=== PATIENT | male | born 1935 | race Caucasian/White ===

== ENCOUNTER 2016-09-15 22:32 | Inpatient (IN) | payer MEDICARE, BC ==
[~2016-09-15 22:32] MED LIST: ACTOS45 MG; AMITRIPTYLINE H25 M1 PO; AMITRIPTYLINE100 MG; AMLODIPINE BESYL5 MG PO; ASPIR-TRIN325 M2 PO; ASPIRIN325 MG; BENAZEPRIL HCL20 M2 PO; CADUET 5 MG/201 TAB; CATAPRES0.2 MG; CENTRUM SILVER1 EAC3 PO; CENTRUM SILVER1 TA; CLONIDINE HCL0.2 M1 PO; CLOPIDOGREL75 M1 PO; COREG6.25 M1 PO; COREG6.25 MG; ELAVIL75 MG; FISH OIL 1,0001 CAP; FISH OIL 1,2001 EAC4 PO; FUROSEMIDE20 MG; FUROSEMIDE40 M2 PO; FUROSEMIDE40 MG; GLUCOPHAGE500 M3 PO; GLUCOVANCE 5/501 TAB; ISOSORBIDE DINI30 M1 PO; LANTUS100 U/ML; LANTUS100 UNITS/ SC; LASIX40 M1 PO; LIPITOR40 MG; NEURONTIN300 M1 PO; NEURONTIN300 MG; NEURONTIN600 MG; PLAVIX75 MG; ZETIA10 MG; ZOCOR80 MG
[2016-09-15] MEDS ORDERED: LIPITOR80 M1 PO (23:01)
[2016-09-15] MEDS ORDERED: LEVEMIR100 UNITS/ SC ×2 (23:03→23:04)
[2016-09-15] MEDS ORDERED: HUMALOG MI100 UNITS1 (23:06)
[2016-09-15 23:48] LABS: BASO % 0.2 % (0-2); EOS % 1.5 % (0-7); EOSINOPHIL ABSOLUTE COUNT 0.2 tho/cmm (0.0-0.7); HGB-HEMOGLOBIN 11.2 gm/dl (13.5-17.0); IMMATURE GRANULOCYTES ABSOLUTE 0.01 tho/cmm (0-0.03); IMMATURE GRANULOCYTES PERCENT 0.1 % (0-0.3); LYMPH % 12.6 % (20-45); LYMPH ABSOLUTE COUNT 1.3 tho/cmm (0.8-4.5); MCH (MEAN CORPUSCULAR HGB) 28.5 pg (28.0-32.0); MCHC MEAN CORPUSCULAR HGB CONC 33.9 % (32.0-36.0); MEAN PLATELET VOLUME 9.6 cmc (9.4-12.4); MONO % 6.9 % (0-12); MONOCYTE ABSOLUTE COUNT 0.7 tho/cmm (0.0-1.2); NEUTROPHIL ABSOLUTE COUNT 8.3 tho/cmm (1.6-8.0); NEUTROPHIL-AUTOMATED 8.3 tho/cmm (1.6-8.0); NEUTROPHILS % 78.7 % (40-80); PLATELET COUNT 167 tho/cmm (150-450); RED BLOOD COUNT 3.93 mil/cmm (4.40-5.70); RED CELL DISTRIBUTION WIDTH 13.5 % (12.4-16.4); WHITE BLOOD COUNT 10.6 tho/cmm (4.0-10.0)
[2016-09-15 23:53] LABS: PROTHROMBIN TIME 11.6 SECONDS (9.0-13.6)
[2016-09-16 00:07] LABS: ALB/GLOB RATIO 0.9 (0.8-2.0); ALKALINE PHOSPHATASE 60 U/L (33-138); ALT/SGPT 22 U/L (12-78); ANION GAP 13 mmol/L (0-20); AST/SGOT 15 U/L (10-40); BILIRUBIN,TOTAL 0.5 mg/dl (0.0-1.5); BLOOD UREA NITROGEN 33 mg/dl (6-24); CALCIUM 8.3 mg/dl (8.5-10.5); CARBON DIOXIDE-VENOUS 29 mmol/L (22-32); CHLORIDE 103 mmol/l (96-110); CREATININE 1.26 mg/dl (0.60-1.30); GLUCOSE 275 mg/dL (70-110); POTASSIUM 5.7 mmol/L (3.7-5.1); SODIUM 139 mmol/L (135-145); eGFR VALUE FOR BLACK 62 mL/Min
[2016-09-16 03:21] LABS: MCV (MEAN CELL VOLUME) 84.1 fl (82.0-96.0); RED CELL DISTRIBUTION WIDTH 13.5 % (12.4-16.4)
[2016-09-16 03:22] LABS: HCT-HEMATOCRIT 23.3 % (36.0-53.5); HGB-HEMOGLOBIN 7.8 gm/dl (13.5-17.0)
[2016-09-16 03:38] LABS: C-REACTIVE PROTEIN <0.3 mg/dl (0-0.9); MAGNESIUM 1.6 mg/dl (1.8-2.6); PHOSPHOROUS 1.8 mg/dl (2.5-4.9)
[2016-09-16 03:43] LABS: ESR-ERYTHROCYTE SED RATE 11 mm/hr (0-20)
[2016-09-16 04:16] LABS: PROCALCITONIN <0.05 ng/ml (0.05-0.09)
[2016-09-16 06:44] LABS: ANION GAP 14 mmol/L (0-20); BLOOD UREA NITROGEN 38 mg/dl (6-24); CARBON DIOXIDE-VENOUS 24 mmol/L (22-32); CHLORIDE 107 mmol/l (96-110); CREATININE 1.24 mg/dl (0.60-1.30); GLUCOSE 306 mg/dL (70-110); POTASSIUM 5.6 mmol/L (3.7-5.1); SODIUM 139 mmol/L (135-145); eGFR VALUE FOR BLACK 63 mL/Min
[2016-09-16 06:50] LABS: BASO % 0.3 % (0-2); EOS % 0.2 % (0-7); HGB-HEMOGLOBIN 7.2 gm/dl (13.5-17.0); IMMATURE GRANULOCYTES ABSOLUTE 0.03 tho/cmm (0-0.03); IMMATURE GRANULOCYTES PERCENT 0.3 % (0-0.3); LYMPH ABSOLUTE COUNT 1.3 tho/cmm (0.8-4.5); MCH (MEAN CORPUSCULAR HGB) 28.6 pg (28.0-32.0); MCV (MEAN CELL VOLUME) 83.3 fl (82.0-96.0); MEAN PLATELET VOLUME 9.4 cmc (9.4-12.4); MONO % 4.8 % (0-12); MONOCYTE ABSOLUTE COUNT 0.5 tho/cmm (0.0-1.2); NEUTROPHIL ABSOLUTE COUNT 8.7 tho/cmm (1.6-8.0); NEUTROPHIL-AUTOMATED 8.7 tho/cmm (1.6-8.0); NEUTROPHILS % 82.4 % (40-80); PLATELET COUNT 160 tho/cmm (150-450); RED BLOOD COUNT 2.52 mil/cmm (4.40-5.70); RED CELL DISTRIBUTION WIDTH 13.7 % (12.4-16.4); WHITE BLOOD COUNT 10.5 tho/cmm (4.0-10.0)
[2016-09-16 07:05] LABS: MCHC MEAN CORPUSCULAR HGB CONC 34.3 % (32.0-36.0)
[2016-09-16 17:17] LABS: URINE BILIRUBIN NEGATIVE (NEG); URINE BLOOD NEGATIVE (NEG); URINE COLOR YELLOW; URINE GLUCOSE (UA) LARGE (NEG); URINE KETONE SMALL (NEG); URINE LEUKOCYTE ESTERASE NEGATIVE (NEG); URINE NITRITE NEGATIVE (NEG); URINE PH 6.5 (5.0-8.0); URINE PROTEIN NEGATIVE (NEG); URINE SPECIFIC GRAVITY 1.005 (1.003-1.030)
[2016-09-16 17:18] LABS: URINE APPEARANCE CLEAR
[2016-09-17 05:26] LABS: BASO % 0.1 % (0-2); EOS % 0.5 % (0-7); HGB-HEMOGLOBIN 7.4 gm/dl (13.5-17.0); IMMATURE GRANULOCYTES ABSOLUTE 0.02 tho/cmm (0-0.03); IMMATURE GRANULOCYTES PERCENT 0.3 % (0-0.3); LYMPH % 15.4 % (20-45); LYMPH ABSOLUTE COUNT 1.2 tho/cmm (0.8-4.5); MCH (MEAN CORPUSCULAR HGB) 28.5 pg (28.0-32.0); MCV (MEAN CELL VOLUME) 83.8 fl (82.0-96.0); MEAN PLATELET VOLUME 9.4 cmc (9.4-12.4); MONOCYTE ABSOLUTE COUNT 0.6 tho/cmm (0.0-1.2); NEUTROPHIL ABSOLUTE COUNT 5.8 tho/cmm (1.6-8.0); NEUTROPHIL-AUTOMATED 5.8 tho/cmm (1.6-8.0); NEUTROPHILS % 75.7 % (40-80); RED CELL DISTRIBUTION WIDTH 15.2 % (12.4-16.4); WHITE BLOOD COUNT 7.6 tho/cmm (4.0-10.0)
[2016-09-17 05:36] LABS: ANION GAP 11 mmol/L (0-20); BLOOD UREA NITROGEN 26 mg/dl (6-24); CALCIUM 6.9 mg/dl (8.5-10.5); CARBON DIOXIDE-VENOUS 26 mmol/L (22-32); CHLORIDE 111 mmol/l (96-110); CREATININE 0.98 mg/dl (0.60-1.30); GLUCOSE 239 mg/dL (70-110); SODIUM 144 mmol/L (135-145); eGFR VALUE FOR BLACK 83 mL/Min
[2016-09-17 05:51] LABS: HCT-HEMATOCRIT 21.8 % (36.0-53.5); MCHC MEAN CORPUSCULAR HGB CONC 33.9 % (32.0-36.0)
[2016-09-17 05:52] LABS: PLATELET COUNT 74 tho/cmm (150-450)
[2016-09-17 06:09] LABS: POTASSIUM 3.5 mmol/L (3.7-5.1)
[2016-09-17 21:18] LABS: HGB-HEMOGLOBIN 8.5 gm/dl (13.5-17.0)
[2016-09-18 05:57] LABS: ANION GAP 11 mmol/L (0-20); BLOOD UREA NITROGEN 14 mg/dl (6-24); CARBON DIOXIDE-VENOUS 25 mmol/L (22-32); CHLORIDE 116 mmol/l (96-110); CREATININE 0.86 mg/dl (0.60-1.30); GLUCOSE 262 mg/dL (70-110); POTASSIUM 3.8 mmol/L (3.7-5.1); SODIUM 148 mmol/L (135-145); eGFR VALUE FOR BLACK >90 mL/Min
[2016-09-18 06:14] LABS: CALCIUM 6.4 mg/dl (8.5-10.5)
[2016-09-18 09:11] LABS: BASO % 0.2 % (0-2); EOS % 1.1 % (0-7); EOSINOPHIL ABSOLUTE COUNT 0.1 tho/cmm (0.0-0.7); HGB-HEMOGLOBIN 6.6 gm/dl (13.5-17.0); IMMATURE GRANULOCYTES ABSOLUTE 0.06 tho/cmm (0-0.03); IMMATURE GRANULOCYTES PERCENT 0.5 % (0-0.3); LYMPH % 8.9 % (20-45); MCH (MEAN CORPUSCULAR HGB) 28.8 pg (28.0-32.0); MCV (MEAN CELL VOLUME) 85.2 fl (82.0-96.0); MEAN PLATELET VOLUME 9.6 cmc (9.4-12.4); MONO % 7.5 % (0-12); MONOCYTE ABSOLUTE COUNT 0.8 tho/cmm (0.0-1.2); NEUTROPHIL ABSOLUTE COUNT 9.1 tho/cmm (1.6-8.0); NEUTROPHIL-AUTOMATED 9.1 tho/cmm (1.6-8.0); NEUTROPHILS % 81.8 % (40-80); PLATELET COUNT 83 tho/cmm (150-450); RED BLOOD COUNT 2.29 mil/cmm (4.40-5.70); RED CELL DISTRIBUTION WIDTH 15.3 % (12.4-16.4); WHITE BLOOD COUNT 11.2 tho/cmm (4.0-10.0)
[2016-09-18 09:18] LABS: HCT-HEMATOCRIT 19.5 % (36.0-53.5); MCHC MEAN CORPUSCULAR HGB CONC 33.8 % (32.0-36.0)
[2016-09-19 03:45] LABS: BASO % 0.2 % (0-2); EOS % 2.7 % (0-7); EOSINOPHIL ABSOLUTE COUNT 0.2 tho/cmm (0.0-0.7); HGB-HEMOGLOBIN 6.1 gm/dl (13.5-17.0); IMMATURE GRANULOCYTES ABSOLUTE 0.05 tho/cmm (0-0.03); IMMATURE GRANULOCYTES PERCENT 0.8 % (0-0.3); LYMPH % 19.7 % (20-45); LYMPH ABSOLUTE COUNT 1.3 tho/cmm (0.8-4.5); MCH (MEAN CORPUSCULAR HGB) 28.4 pg (28.0-32.0); MCV (MEAN CELL VOLUME) 84.7 fl (82.0-96.0); MEAN PLATELET VOLUME 9.8 cmc (9.4-12.4); MONO % 11.6 % (0-12); MONOCYTE ABSOLUTE COUNT 0.8 tho/cmm (0.0-1.2); NEUTROPHIL ABSOLUTE COUNT 4.3 tho/cmm (1.6-8.0); NEUTROPHIL-AUTOMATED 4.3 tho/cmm (1.6-8.0); PLATELET COUNT 85 tho/cmm (150-450); RED BLOOD COUNT 2.15 mil/cmm (4.40-5.70); WHITE BLOOD COUNT 6.7 tho/cmm (4.0-10.0)
[2016-09-19 03:51] LABS: ALB/GLOB RATIO 0.9 (0.8-2.0); ALBUMIN 1.8 g/dl (3.5-5.0); ALKALINE PHOSPHATASE 38 U/L (33-138); ALT/SGPT 20 U/L (12-78); ANION GAP 9 mmol/L (0-20); AST/SGOT 18 U/L (10-40); BILIRUBIN,TOTAL 0.4 mg/dl (0.0-1.5); BLOOD UREA NITROGEN 11 mg/dl (6-24); CARBON DIOXIDE-VENOUS 26 mmol/L (22-32); CHLORIDE 116 mmol/l (96-110); CREATININE 0.79 mg/dl (0.60-1.30); GLUCOSE 186 mg/dL (70-110); POTASSIUM 3.3 mmol/L (3.7-5.1); SODIUM 148 mmol/L (135-145); eGFR VALUE FOR BLACK >90 mL/Min
[2016-09-19 04:02] LABS: CALCIUM 6.5 mg/dl (8.5-10.5)
[2016-09-19 04:09] LABS: HCT-HEMATOCRIT 18.2 % (36.0-53.5); MCHC MEAN CORPUSCULAR HGB CONC 33.5 % (32.0-36.0)
[2016-09-19 14:45] LABS: HGB-HEMOGLOBIN 8.2 gm/dl (13.5-17.0)
[2016-09-20 05:38] LABS: BASO % 0.4 % (0-2); EOS % 3.7 % (0-7); EOSINOPHIL ABSOLUTE COUNT 0.3 tho/cmm (0.0-0.7); HGB-HEMOGLOBIN 7.9 gm/dl (13.5-17.0); IMMATURE GRANULOCYTES ABSOLUTE 0.04 tho/cmm (0-0.03); IMMATURE GRANULOCYTES PERCENT 0.5 % (0-0.3); LYMPH % 13.2 % (20-45); MCH (MEAN CORPUSCULAR HGB) 28.5 pg (28.0-32.0); MCHC MEAN CORPUSCULAR HGB CONC 33.8 % (32.0-36.0); MCV (MEAN CELL VOLUME) 84.5 fl (82.0-96.0); MONO % 11.4 % (0-12); MONOCYTE ABSOLUTE COUNT 0.8 tho/cmm (0.0-1.2); NEUTROPHIL ABSOLUTE COUNT 5.2 tho/cmm (1.6-8.0); NEUTROPHIL-AUTOMATED 5.2 tho/cmm (1.6-8.0); NEUTROPHILS % 70.8 % (40-80); PLATELET COUNT 101 tho/cmm (150-450); RED BLOOD COUNT 2.77 mil/cmm (4.40-5.70); RED CELL DISTRIBUTION WIDTH 15.9 % (12.4-16.4); WHITE BLOOD COUNT 7.4 tho/cmm (4.0-10.0)
[2016-09-20 05:40] LABS: HCT-HEMATOCRIT 23.4 % (36.0-53.5)
[2016-09-20 05:47] LABS: ANION GAP 9 mmol/L (0-20); BLOOD UREA NITROGEN 7 mg/dl (6-24); CARBON DIOXIDE-VENOUS 27 mmol/L (22-32); CHLORIDE 110 mmol/l (96-110); CREATININE 0.69 mg/dl (0.60-1.30); GLUCOSE 145 mg/dL (70-110); SODIUM 143 mmol/L (135-145); eGFR VALUE FOR BLACK >90 mL/Min
--- NOTE | 2016-09-20 20:58 | NUR ---
VN/LEADER ROUNDING NOTE-PATIENT SITTING UP IN CHAIR COMFORTABLY WITH THE BEDSIDE NURSE GIVING HM MEDICATIONS. HE STATES HIS PAIN IS CONTROLLED. WE DID DISCUSS HIS BUTTOCKS BEING SORE AND THEY PUT SOME CREAM ON IT. I EDUCATED HIM ON REPOSITIONING HE IS SITTING IN THE CHAIR AND WHEN LAYING IN THE BED. I ALSO SUGGESTED TO K[facility] TO MAYBE PUT A SACRAL MEPILEX ON HIM IF NEEDED. PATIENT HAD NO OTHER QUESTIONS OR CONCERNS AT THIS TIME. HE UNDERSTANDS THE EGD HE WILL GET IN THE MORNING. CHART REVIEWED.
--- NOTE | 2016-09-21 08:01 | NUR ---
OFF UNIT FOR EGD
--- NOTE | 2016-09-21 10:15 | NUR ---
DOWN FOR NUC MED BLEED STUDY (GI)
[2016-09-22 05:14] LABS: BASO % 0.1 % (0-2); EOS % 4.4 % (0-7); EOSINOPHIL ABSOLUTE COUNT 0.3 tho/cmm (0.0-0.7); HCT-HEMATOCRIT 27.6 % (36.0-53.5); HGB-HEMOGLOBIN 9.3 gm/dl (13.5-17.0); IMMATURE GRANULOCYTES ABSOLUTE 0.04 tho/cmm (0-0.03); IMMATURE GRANULOCYTES PERCENT 0.6 % (0-0.3); LYMPH % 10.1 % (20-45); LYMPH ABSOLUTE COUNT 0.7 tho/cmm (0.8-4.5); MCH (MEAN CORPUSCULAR HGB) 28.9 pg (28.0-32.0); MCHC MEAN CORPUSCULAR HGB CONC 33.7 % (32.0-36.0); MCV (MEAN CELL VOLUME) 85.7 fl (82.0-96.0); MEAN PLATELET VOLUME 9.7 cmc (9.4-12.4); MONOCYTE ABSOLUTE COUNT 0.7 tho/cmm (0.0-1.2); NEUTROPHIL ABSOLUTE COUNT 5.4 tho/cmm (1.6-8.0); NEUTROPHIL-AUTOMATED 5.4 tho/cmm (1.6-8.0); NEUTROPHILS % 74.8 % (40-80); PLATELET COUNT 97 tho/cmm (150-450); RED BLOOD COUNT 3.22 mil/cmm (4.40-5.70); RED CELL DISTRIBUTION WIDTH 15.5 % (12.4-16.4); WHITE BLOOD COUNT 7.2 tho/cmm (4.0-10.0)
[2016-09-22 05:31] LABS: ANION GAP 10 mmol/L (0-20); BLOOD UREA NITROGEN 5 mg/dl (6-24); CALCIUM 7.3 mg/dl (8.5-10.5); CARBON DIOXIDE-VENOUS 28 mmol/L (22-32); CHLORIDE 111 mmol/l (96-110); CREATININE 0.72 mg/dl (0.60-1.30); GLUCOSE 164 mg/dL (70-110); POTASSIUM 3.3 mmol/L (3.7-5.1); SODIUM 146 mmol/L (135-145); eGFR VALUE FOR BLACK >90 mL/Min
--- NOTE | 2016-09-22 18:53 | NUR ---
VIRTUAL CARE NOTE: ASSESSMENT DEFERRED. PT. SLEEPING.
--- NOTE | 2016-09-22 20:30 | NUR ---
VIRUTAL CARE NOTE: PT. IN THE CHAIR, STATES IS NOT HAVING ANY PAIN, IS SLIGHTLY MANZANITA. PT. MADE AWARE THAT A DR. SPECIALIZED IN BLOOD DISORDERS WHAT GOING TO SEE HIM IN THE AM TO FIND OUT REASONING FOR RESCENT BLOOD CLOT. PT. EXPLAINED ONE DAUGHTER HE KNOWS ESE HAD FACTOR 5 LEDIAN AND THAT HE ONCE HAD A BLOOD CLOT IN HIS LEFT SHOULDER IN THE PAST A SIZE OF A SOFT BALL. ALSO REVIEWED THE ORDER OF DR. JOHNSON OF BEING NPO AFTER MIDNIGHT. THIS NURSE WASN'T ABLE TO GIVE EXPLANATION BEHIND NPO STATUS BECAUSE THERE WAS NO NOTES WRITTEN, BUT PT. WAS TOLD SOMETIMES DR'S WILL DO THIS IF THEY WANT TO PREPARE FOR SOME POSSIBLE TESTS DEPENDING ON HIS LAB. DENIES FURTHER NEEDS AT THIS TIME. INSTRUCTED TO CALL FOR HELP PRIOR TO GETTING UP TO PREVENT FALLS, STATES VERBAL UNDERSTANDING OF ALL INFORMATION GIVEN.
[2016-09-23 04:53] LABS: BASO % 0.4 % (0-2); EOS % 3.9 % (0-7); EOSINOPHIL ABSOLUTE COUNT 0.3 tho/cmm (0.0-0.7); HCT-HEMATOCRIT 28.4 % (36.0-53.5); HGB-HEMOGLOBIN 9.6 gm/dl (13.5-17.0); IMMATURE GRANULOCYTES ABSOLUTE 0.02 tho/cmm (0-0.03); IMMATURE GRANULOCYTES PERCENT 0.2 % (0-0.3); LYMPH % 12.7 % (20-45); MCH (MEAN CORPUSCULAR HGB) 28.7 pg (28.0-32.0); MCHC MEAN CORPUSCULAR HGB CONC 33.8 % (32.0-36.0); MCV (MEAN CELL VOLUME) 84.8 fl (82.0-96.0); MEAN PLATELET VOLUME 9.4 cmc (9.4-12.4); MONO % 7.9 % (0-12); MONOCYTE ABSOLUTE COUNT 0.6 tho/cmm (0.0-1.2); NEUTROPHILS % 74.9 % (40-80); PLATELET COUNT 113 tho/cmm (150-450); RED BLOOD COUNT 3.35 mil/cmm (4.40-5.70); RED CELL DISTRIBUTION WIDTH 15.1 % (12.4-16.4)
[2016-09-24 05:17] LABS: BASO % 0.5 % (0-2); EOS % 4.2 % (0-7); EOSINOPHIL ABSOLUTE COUNT 0.3 tho/cmm (0.0-0.7); HCT-HEMATOCRIT 29.6 % (36.0-53.5); HGB-HEMOGLOBIN 9.9 gm/dl (13.5-17.0); IMMATURE GRANULOCYTES ABSOLUTE 0.08 tho/cmm (0-0.03); LYMPH % 13.9 % (20-45); LYMPH ABSOLUTE COUNT 1.1 tho/cmm (0.8-4.5); MCH (MEAN CORPUSCULAR HGB) 28.2 pg (28.0-32.0); MCHC MEAN CORPUSCULAR HGB CONC 33.4 % (32.0-36.0); MCV (MEAN CELL VOLUME) 84.3 fl (82.0-96.0); MEAN PLATELET VOLUME 9.2 cmc (9.4-12.4); MONO % 14.9 % (0-12); MONOCYTE ABSOLUTE COUNT 1.2 tho/cmm (0.0-1.2); NEUTROPHIL ABSOLUTE COUNT 5.3 tho/cmm (1.6-8.0); NEUTROPHIL-AUTOMATED 5.3 tho/cmm (1.6-8.0); NEUTROPHILS % 65.5 % (40-80); PLATELET COUNT 106 tho/cmm (150-450); RED BLOOD COUNT 3.51 mil/cmm (4.40-5.70); RED CELL DISTRIBUTION WIDTH 14.8 % (12.4-16.4)
[2016-09-24] MEDS ORDERED: LOVENOX60 MG/0.1 SC (10:53)
[2016-09-24] MEDS ORDERED: PROTONIX40 M2 PO (10:57)
[2016-09-24] MEDS ORDERED: LOTRIMIN AF12 GM TP (10:59)
[2016-09-25 04:35] LABS: BASO % 0.5 % (0-2); EOS % 4.6 % (0-7); EOSINOPHIL ABSOLUTE COUNT 0.3 tho/cmm (0.0-0.7); HCT-HEMATOCRIT 29.7 % (36.0-53.5); HGB-HEMOGLOBIN 9.8 gm/dl (13.5-17.0); IMMATURE GRANULOCYTES ABSOLUTE 0.02 tho/cmm (0-0.03); IMMATURE GRANULOCYTES PERCENT 0.4 % (0-0.3); LYMPH % 15.8 % (20-45); LYMPH ABSOLUTE COUNT 0.9 tho/cmm (0.8-4.5); MCH (MEAN CORPUSCULAR HGB) 28.3 pg (28.0-32.0); MCV (MEAN CELL VOLUME) 85.8 fl (82.0-96.0); MEAN PLATELET VOLUME 9.4 cmc (9.4-12.4); MONO % 10.7 % (0-12); MONOCYTE ABSOLUTE COUNT 0.6 tho/cmm (0.0-1.2); NEUTROPHIL ABSOLUTE COUNT 3.9 tho/cmm (1.6-8.0); NEUTROPHIL-AUTOMATED 3.9 tho/cmm (1.6-8.0); PLATELET COUNT 128 tho/cmm (150-450); RED BLOOD COUNT 3.46 mil/cmm (4.40-5.70); RED CELL DISTRIBUTION WIDTH 14.7 % (12.4-16.4); WHITE BLOOD COUNT 5.7 tho/cmm (4.0-10.0)
[2016-09-25] MEDS ORDERED: STOP HOME MEDICATION (16:29)
[2016-09-25] MEDS ORDERED: LOVENOX40 MG/0.1 PO (16:53)
--- NOTE | 2016-09-25 17:30 | NUR ---
VIRTUAL CARE NOTE: PT SITTING ON CHAIR, DAUGHTER AT BEDSIDE READY FOR DISCHARGE INSTRUCTIONS. INFORMATION GIVEN AT BEDSIDE, ALL QUESTIONS ANSWERED, PT DENIES FURTHER QUESTIONS. INFORMED FLOOR NURSE DISCHARGE TEACHING DONE.
== END 2016-09-25 18:00 | DRG 871 ==
LOC: EDMED 22:32 → EMR2 09-16 02:57 → PCUB 09-16 04:20 → CCU 09-18 11:42 → PCUA 09-18 19:20 → 5WD 09-20 10:00
PROVIDERS: Emergency Medicine; Hospitalist; Internal Medicine Gastroenterology; Nurse Practitioner Adult Health; ADMIT Family Medicine
PROC: 0DJ08ZZ Inspection of Upper Intestinal Tract, Via Natural or Artificial Opening Endoscopic (ICD-10-PCS; principal; 2016-09-16)
PROC: 30233N1 Transfusion of Nonautologous Red Blood Cells into Peripheral Vein, Percutaneous Approach (ICD-10-PCS; 2016-09-16)
PROC: 0DJD8ZZ Inspection of Lower Intestinal Tract, Via Natural or Artificial Opening Endoscopic (ICD-10-PCS; 2016-09-17)
PROC: 0D598ZZ Destruction of Duodenum, Via Natural or Artificial Opening Endoscopic (ICD-10-PCS; 2016-09-18)
PROC: 0DB68ZX Excision of Stomach, Via Natural or Artificial Opening Endoscopic, Diagnostic (ICD-10-PCS; 2016-09-21)
DX: A41.9 Sepsis, unspecified organism (principal); J18.9 Pneumonia, unspecified organism; E11.65 Type 2 diabetes mellitus with hyperglycemia; D68.51 Activated protein C resistance; E87.5 Hyperkalemia; I73.9 Peripheral vascular disease, unspecified; D62 Acute posthemorrhagic anemia; J98.11 Atelectasis; E78.5 Hyperlipidemia, unspecified; I10 Essential (primary) hypertension; I25.10 Atherosclerotic heart disease of native coronary artery without angina pectoris; K21.0 Gastro-esophageal reflux disease with esophagitis; R65.20 Severe sepsis without septic shock; Z79.01 Long term (current) use of anticoagulants; Z95.1 Presence of aortocoronary bypass graft
CPT/HCPCS: A9560; C1751; C9113; G0500; J0171; J0360; J0456; J0610; J0696; J1650; J1815; J1940; J2250; J2405; J3010; J3370; J7030; J7050; P9016; P9035; P9037; Q9967